=== PATIENT | female | born 1960 | race Caucasian/White ===

== ENCOUNTER 2022-06-06 13:35 | Emergency (ER) | payer SELFPAY ==
[~2022-06-06] VITALS: Ht 144.8 cm; Wt 90.7 kg
[2022-06-06 13:44] VITALS: BP 141/119
[2022-06-06 13:47] VITALS: BP 161/102
[2022-06-06 13:55] VITALS: BP 176/102
[2022-06-06 14:10] VITALS: BP 144/93
[2022-06-06 14:12] LABS: HEMOGLOBIN 13.4 g/dl (12.0-16.0); IMMATURE GRANULOCYTES 0.2 % (0.0-5.0); MEAN CELL VOLUME 88.2 fL CALC (80.0-100.0); MEAN CORPUSCULAR HGB 30.3 pG CALC (26.0-32.0); MEAN CORPUSCULAR HGB CONC 34.4 g/dL CAL (32.0-36.0); NEUT# 4.1 thou/uL (2.00-7.15); RED BLOOD COUNT 4.42 mill/uL (4.20-5.60)
[2022-06-06 14:19] LABS: URINE BILIRUBIN - DIPSTICK NEGATIVE (NEGATIVE); URINE BLOOD DIPSTICK TRACE-INTACT (NEGATIVE); URINE COLOR YELLOW; URINE GLUCOSE - DIPSTICK NEGATIVE (NEGATIVE); URINE KETONE TRACE mg/dL (NEGATIVE); URINE LEUK ESTERASE TRACE (NEGATIVE); URINE PROTEIN - DIPSTICK NEGATIVE (NEG-TRACE); URINE UROBILINOGEN - DIPSTICK 0.2 E.U./dL (0.2)
[2022-06-06 14:21] LABS: ALBUMIN 4.9 g/dL (3.2-5.0); ALKALINE PHOSPHATASE 101 u/l (38-126); BILIRUBIN, TOTAL 0.5 mg/dL (0.0-1.4); BUN 12 mg/dL (7-17); BUN/CREATININE RATIO 20 (12-20 (CALC)); CARBON DIOXIDE 21 mmol/l (22-30); CREATININE 0.6 mg/dL (0.5-1.0); GFR FOR AFR.AMER. > 60 ML/MIN (>=60 (CALC)); GFR OTHER RACES > 60 ML/MIN (>=60 (CALC)); LIPASE 52 u/l (23-300); POTASSIUM 3.6 mmol/l (3.5-5.1); SGOT/AST 23 u/l (14-36); SODIUM 140 mmol/l (137-146); TOTAL PROTEIN 8.1 g/dL (6.3-8.2)
[2022-06-06 14:28] LABS: URINE NITRITE - DIPSTICK NEGATIVE (Negative)
[2022-06-06 15:02] LABS: ANION GAP 16 (6-22 (CALC)); CHLORIDE 107 mmol/l (95-108)
[2022-06-06 15:12] VITALS: BP 147/75
[2022-06-06 15:35] LABS: TSH, 3RD GENERATION 0.87 uIU/mL (0.47 - 4.68)
[2022-06-06] MEDS ORDERED: PROMETHAZINE HY25 M1 PO (17:03)
[2022-06-06] MEDS ORDERED: VISTARIL25 MG PO (17:03)
[2022-06-06 17:13] VITALS: BP 147/75
[2022-06-07] MEDS ORDERED: PROMETHAZINE HY25 M1 PO (10:29)
[2022-06-07] MEDS ORDERED: VISTARIL25 MG PO (10:29)
== END 2022-06-06 17:23 | disposition home or self-care (01) | DRG 392 ==
LOC: ED 13:35
PROVIDERS: Family Medicine
DX: R10.12 Left upper quadrant pain (principal); F41.0 Panic disorder [episodic paroxysmal anxiety]; I10 Essential (primary) hypertension; F32.A Depression, unspecified; E66.9 Obesity, unspecified; K21.9 Gastro-esophageal reflux disease without esophagitis; F17.210 Nicotine dependence, cigarettes, uncomplicated
CPT/HCPCS: Q9967

== ENCOUNTER 2022-06-30 17:45 | Emergency (ER) | payer SELFPAY ==
[~2022-06-30] VITALS: Ht 144.8 cm; Wt 85.0 kg
[2022-06-30] VITALS (8 sets, daily range): BP systolic 127–172; BP diastolic 87–104
[~2022-06-30 17:45] MED LIST: PROMETHAZINE HY25 M1 PO; VISTARIL25 MG PO
[2022-06-30] MEDS ORDERED: TRAMADOL HCL50 MG PO (19:23)
[2022-06-30] MEDS ORDERED: MOTRIN800 MG PO (19:23)
== END 2022-06-30 19:44 | disposition home or self-care (01) | DRG 563 ==
LOC: ED 17:45
DX: S52.131A Displaced fracture of neck of right radius, initial encounter for closed fracture (principal); I10 Essential (primary) hypertension; F17.200 Nicotine dependence, unspecified, uncomplicated; W10.9XXA Fall (on) (from) unspecified stairs and steps, initial encounter; Y92.009 Unspecified place in unspecified non-institutional (private) residence as the place of occurrence of the external cause

== ENCOUNTER 2022-11-19 14:19 | Emergency (ER) | payer SELFPAY ==
[~2022-11-19] VITALS: Ht 144.8 cm; Wt 87.8 kg
[~2022-11-19 14:19] MED LIST changes: +MOTRIN800 MG PO; +TRAMADOL HCL50 MG PO
[2022-11-19] MEDS ORDERED: COZAAR50 MG PO (14:27)
[2022-11-19] MEDS ORDERED: XANAX0.25 MG PO (14:51)
[2022-11-19 15:04] VITALS: BP 151/79
== END 2022-11-19 15:05 | disposition home or self-care (01) | DRG 880 ==
LOC: ED 14:19
DX: F41.9 Anxiety disorder, unspecified (principal); F32.A Depression, unspecified; I10 Essential (primary) hypertension; K21.9 Gastro-esophageal reflux disease without esophagitis; F17.210 Nicotine dependence, cigarettes, uncomplicated

== ENCOUNTER 2022-11-26 09:20 | Emergency (ER) | payer SELFPAY ==
[~2022-11-26] VITALS: Ht 144.8 cm; Wt 86.6 kg
[~2022-11-26 09:20] MED LIST changes: +COZAAR50 MG PO; +XANAX0.25 MG PO
[2022-11-26 10:08] VITALS: BP 151/89
[2022-11-26 10:30] VITALS: BP 140/104
[2022-11-26] MEDS ORDERED: ATIVAN1 M1 PO (10:30)
== END 2022-11-26 11:00 | disposition home or self-care (01) | DRG 880 ==
LOC: ED 09:20
DX: F41.9 Anxiety disorder, unspecified (principal); I10 Essential (primary) hypertension; Z85.41 Personal history of malignant neoplasm of cervix uteri; F17.210 Nicotine dependence, cigarettes, uncomplicated